=== PATIENT | male | born 1945 | race African-American/Black ===

== ENCOUNTER 2024-02-23 15:56 | Emergency (ER) | payer MEDICARE ==
[~2024-02-23] VITALS: Ht 177.8 cm; Wt 95.5 kg
[~2024-02-23 15:56] MED LIST: LORA-1000 PO
[2024-02-23 16:10] VITALS: TEMP 97.8
[2024-02-23] MEDS: TraMADol HCL 50 MG TABLET PO ONE (18:43)
[2024-02-23] MEDS: KETOROLAC TROMETHAMINE 30 MG/ML VIAL IM ONE (18:44)
[2024-02-23] MEDS ORDERED: TRAM50TA5 PO (19:09)
[2024-02-23 19:19] VITALS: BP 151/87; PULSE 86; RESP 16; O2SAT 97
== END 2024-02-23 19:30 | disposition home or self-care (01) ==
LOC: EMS 15:56
DX: S80.02XA Contusion of left knee, initial encounter (principal); F41.9 Anxiety disorder, unspecified; I10 Essential (primary) hypertension; W19.XXXA Unspecified fall, initial encounter; Y93.01 Activity, walking, marching and hiking; Y92.89 Other specified places as the place of occurrence of the external cause; Y99.8 Other external cause status
CPT/HCPCS: 99283; 29505; 73562; 96372; J1885